=== PATIENT | male | born 1975 | race Two or more races ===

== ENCOUNTER 2019-05-10 01:26 | Emergency (ER) | payer SELFPAY ==
[~2019-05-10] VITALS: Ht 165.1 cm; Wt 100.6 kg
[2019-05-10 02:13] LABS: COLOR,URINE YELLOW (Yellow); GLUCOSE, URINE NEGATIVE (Neg); KETONES,URINE NEGATIVE (Neg); LEUKOCYTE ESTERASE ,URINE TRACE (Neg); NITRITES, URINE NEGATIVE (Neg); OCCULT BLOOD,URINE TRACE-INTACT (Neg); PROTEIN,URINE NEGATIVE (Neg); UROBILINOGEN,URINE 0.2 E.U/dL (0.2-1.0)
[2019-05-10 02:18] LABS: CLARITY,URINE SLIGHTLY CLOUDY (Clear); UA COLLECTION TYPE CLN CATCH MIDSTREAM
[2019-05-10 02:19] LABS: BACTERIA,URINE FEW /HPF (Neg); RBC,URINE NONE SEEN /HPF (0-2); SQUAMOUS EPITHELIAL CELL,UR MODERATE /LPF (FEW)
[2019-05-10 02:19] LABS: BASOPHILS % (AUTO) 0.5 % (0-1); EOSINOPHILS # (AUTO) 0.2 X10'3 (0-0.9); EOSINOPHILS % (AUTO) 2.8 % (0-6); HEMATOCRIT 39.7 % (42.0-52.0); HEMOGLOBIN 13.3 g/dl (14.0-17.9); LYMPHOCYTES # (AUTO) 3.7 X10'3 (1.1-4.8); LYMPHOCYTES % (AUTO) 42.1 % (21-51); MEAN CORPUSCULAR HEMOGLOBIN 26.9 PG (27.0-31.0); MEAN CORPUSCULAR HGB CONC 33.4 g/dL (33.0-36.5); MEAN CORPUSCULAR VOLUME 80.5 FL (78-98); MEAN PLATELET VOLUME 8.3 FL (7.4-10.4); MONOCYTES # (AUTO) 0.6 X10'3 (0-0.9); MONOCYTES % (AUTO) 7.3 % (2-12); NEUTROPHILS # (AUTO) 4.2 X10'3 (1.8-7.7); NEUTROPHILS % (AUTO) 47.3 % (42-75); PLATELET COUNT 344 X10'3 (140-440); RED BLOOD COUNT 4.93 X10'6 (4.70-6.10); RED CELL DISTRIBUTION WIDTH 15.4 % (11.5-14.5); WHITE BLOOD COUNT 8.8 X10'3 (4.5-11.0)
[2019-05-10 02:26] LABS: ALANINE AMINOTRANSFERASE 98 U/L (12-78); ALBUMIN 3.3 G/DL (3.4-5.0); ALBUMIN/GLOBULIN RATIO 0.8 (1.1-1.5); ALKALINE PHOSPHATASE 139 IU/L (46-116); ANION GAP 11 (8-16); ASPARTATE AMINO TRANSFERASE 44 U/L (10-37); BILIRUBIN,TOTAL 0.2 MG/DL (0.1-1.0); BLOOD UREA NITROGEN 9 MG/DL (7-18); BUN/CREATININE RATIO 9.1 (5.4-32.0); CALCIUM 8.9 MG/DL (8.5-10.1); CHLORIDE 104 MMOL/L (99-107); CREATININE 0.99 MG/DL (0.60-1.10); GLUCOSE 168 MG/DL (70-104); POTASSIUM 3.7 MMOL/L (3.5-5.1); SODIUM 140 MMOL/L (135-145); TOTAL CARBON DIOXIDE 25.4 MMOL/L (24-32); TOTAL PROTEIN 7.5 G/DL (6.4-8.2); eGFR 82 ML/MIN
--- NOTE | 2019-05-10 02:43 | NUR ---
HOGSHEAD OPENER AT BEDSIDE FOR ULTRASOUND
[2019-05-10 03:28] VITALS: BP 118/73
[2019-05-10] MEDS ORDERED: SULF1TAB49 PO (04:29)
[2019-05-10] MEDS ORDERED: LEVO500T2 PO (04:29)
== END 2019-05-10 04:47 | disposition home or self-care (01) ==
LOC: ER 01:27
DX: N45.1 Epididymitis (principal); R10.30 Lower abdominal pain, unspecified; E11.9 Type 2 diabetes mellitus without complications; Z79.2 Long term (current) use of antibiotics
CPT/HCPCS: 36415; 76870; 80053; 81001; 85025; 87088; 87491; 99284

== ENCOUNTER 2020-09-21 03:35 | Emergency (ER) | payer BC, OTHER ==
[~2020-09-21] VITALS: Ht 165.1 cm; Wt 227.0 kg
[2020-09-21 03:38] VITALS: BP 164/99
[2020-09-21] MEDS ORDERED: IBUP-1986 PO (03:57)
== END 2020-09-21 04:10 | disposition home or self-care (01) ==
LOC: ER 03:35
DX: K42.9 Umbilical hernia without obstruction or gangrene (principal); E11.9 Type 2 diabetes mellitus without complications; Z79.899 Other long term (current) drug therapy
CPT/HCPCS: 99282